=== PATIENT | female | born 1990 | race Caucasian/White ===

== ENCOUNTER 2017-11-05 08:29 | Emergency (ER) | payer SELFPAY | END 2017-11-05 08:55 | disposition left against medical advice (07) | LOC: MW.ED 08:29 | DX: Z53.21 Procedure and treatment not carried out due to patient leaving prior to being seen by health care provider (principal) ==

== ENCOUNTER 2019-02-01 21:48 | Emergency (ER) | payer MEDICAID, OTHER ==
[2019-02-01] MEDS ORDERED: Benzocaine 20% Topical Spray UD MUCMEM ONE (22:20)
[2019-02-01] MEDS ORDERED: Lidocaine 2% Viscous Solution 15 ML Cup PO ONE (22:20)
--- NOTE | 2019-02-01 22:23 | EDM.PDOC ---
ED HPI GENERAL MEDICAL PROBLEM - General Chief Complaint: General Stated Complaint: PT HAS TOOTHACHE Time Seen by Provider: 02/01/19 22:15 - History of Present Illness INITIAL COMMENTS - FREE TEXT/NARRATIVE: HISTORY AND PHYSICAL: History of present illness: The patient is a 20-year-old female with a known history of dental problems who presents with pain at the upper right back molar area that started today. She has had on-and-off pain throughout her mouth and she has multiple areas of dental issues that she is aware of and is trying to get on top of by making the money that she needs to pay to have these teeth pulled. She has had no facial swelling no fevers no chills no sore throat and no other systemic complaints. She is here because she does not want to get infected and she would like something for pain management. Review of systems: As per history of present illness and below otherwise all systems reviewed and negative. Past medical history: As per history of present illness and as reviewed below otherwise noncontributory. Surgical history: As per history of present illness and as reviewed below otherwise noncontributory. Social history: No reported history of drug or alcohol abuse. Family history: As per history of present illness and as reviewed below otherwise noncontributory. Physical exam: General: Well-developed well-nourished female is nontoxic and there is no visible evidence of facial swelling. Vital signs are noted by me HEENT: Atraumatic, normocephalic, pupils reactive, negative for conjunctival pallor or scleral icterus, mucous membranes moist, throat clear, neck supple, nontender, trachea midline. There is no cervical adenopathy or nuchal rigidity, there are multiple areas of dental disease and dental decay seen in her mouth and the area that is most bothering her is the right upper molar area where there are cavities and gum swelling but no fluctuance. Lungs: Clear to auscultation, breath sounds equal bilaterally, chest nontender. Heart: S1S2, regular rate and rhythm no overt murmurs Abdomen: Deferred Pelvis: Deferred Genitourinary: Deferred. Rectal: Deferred. Extremities: Atraumatic, full range of motion. Neurovascular unremarkable. Neuro: Awake, alert, oriented. Cranial nerves II through XII unremarkable. Cerebellum unremarkable. Motor and sensory unremarkable throughout. Exam nonfocal. Diagnostics: [] Therapeutics: Dental balls Impression: Pain and dental caries Definitive disposition and diagnosis as appropriate pending reevaluation and review of above. Right Lower Tooth/Teeth Pain Score (Numeric/FACES): 1 - Related Data Allergies Allergy/AdvReac Type Severity Reaction Status Date / Time codeine Allergy Vomiting Verified 02/01/19 22:11 Home Meds: Home Meds . [No Known Home Meds] 11/05/17 [History] Past Medical History - Past Health History Medical/Surgical History: Denies Medical/Surgical History Psychiatric History: Reports: Anxiety, Depression - Infectious Disease History Infectious Disease History: Reports: Chicken Pox - Past Surgical History HEENT Surgical History: Reports: Oral Surgery Social & Family History - Tobacco Use Smoking Status *Q: Current Every Day Smoker Years of Tobacco use: 16 Packs/Tins Daily: 0.5 - Caffeine Use Caffeine Use: Reports: Coffee - Recreational Drug Use Recreational Drug Use: Yes Drug Use in Last 12 Months: No Recreational Drug Type: Reports: Marijuana/Hashish Recreational Drug Use Frequency: Not Used In Over 6 Months ED ROS GENERAL - Review of Systems Review Of Systems: ROS reveals no pertinent complaints other than HPI. ED EXAM, GENERAL - Physical Exam Exam: See Below (see dictation) Course - Vital Signs Last Recorded V/S: Last Vital Signs Temp 36.6 C 02/01/19 22:08 Pulse 95 02/01/19 22:08 Resp BP 124/81 02/01/19 22:08 Pulse Ox 99 02/01/19 22:08 - Orders/Labs/Meds Orders: Active Orders 24 hr Category Date Time Status Benzocaine [Hurricaine One 20%] Med 02/01/19 22:20 Once 2 each MUCMEM ONETIME ONE Lidocaine 2% [Xylocaine 2% Viscous] Med 02/01/19 22:20 Once 15 ml PO ONETIME ONE Departure - Departure Time of Disposition: 22:22 Disposition: Home, Self-Care 01 Condition: Good Clinical Impression: Pain due to dental caries - Discharge Information Referrals: PCP,None [Primary Care Provider] - Additional Instructions: The following information is given to patients seen in the emergency department who are being discharged to home. This information is to outline your options for follow-up care. We provide all patients seen in our emergency department with a follow-up referral. The need for follow-up, as well as the timing and circumstances, are variable depending upon the specifics of your emergency department visit. If you don't have a primary care physician on staff, we will provide you with a referral. We always advise you to contact your personal physician following an emergency department visit to inform them of the circumstance of the visit and for follow-up with them and/or the need for any referrals to a consulting specialist. The emergency department will also refer you to a specialist when appropriate. This referral assures that you have the opportunity for followup care with a specialist. All of these measure are taken in an effort to provide you with optimal care, which includes your followup. Under all circumstances we always encourage you to contact your private physician who remains a resource for coordinating your care. When calling for followup care, please make the office aware that this follow-up is from your recent emergency room visit. If for any reason you are refused follow-up, please contact the [facility] emergency department at and ask to speak to the emergency department charge nurse. [facility] [place] [address] Please contact one of our local dentist for evaluation and definitive care. Place ice on face for any swelling and rinse her mouth after each meal. Please use dental balls as you have been given for pain management as well as over-the- counter Tylenol and ibuprofen. Take antibiotics you have been given from [facility], amoxicillin, to control any infection and return to ER as needed and as discussed - My Orders Last 24 Hours: My Active Orders 02/01/19 22:20 Benzocaine [Hurricaine One 20%] 2 each MUCMEM ONETIME ONE Lidocaine 2% [Xylocaine 2% Viscous] 15 ml PO ONETIME ONE - Assessment/Plan Last 24 Hours: My Active Orders 02/01/19 22:20 Benzocaine [Hurricaine One 20%] 2 each MUCMEM ONETIME ONE Lidocaine 2% [Xylocaine 2% Viscous] 15 ml PO ONETIME ONE
== END 2019-02-01 22:50 | disposition home or self-care (01) ==
LOC: MW.ED 21:48
DX: K02.9 Dental caries, unspecified (principal); Z88.5 Allergy status to narcotic agent; F17.210 Nicotine dependence, cigarettes, uncomplicated
CPT/HCPCS: 99282; A9270; 99283

== ENCOUNTER 2019-10-23 20:20 | Emergency (ER) | payer SELFPAY ==
[2019-10-23] MEDS ORDERED: Benzocaine 20% Topical Spray UD MUCMEM ONE (21:07)
[2019-10-23] MEDS ORDERED: Lidocaine 2% Viscous Solution 15 ML Cup PO ONE (21:07)
--- NOTE | 2019-10-23 21:12 | EDM.PDOC ---
ED HPI GENERAL MEDICAL PROBLEM - General Chief Complaint: ENT Problem Stated Complaint: ABCESS TOOTH Time Seen by Provider: 10/23/19 21:04 Source of Information: Reports: Patient History Limitations: Reports: No Limitations - History of Present Illness INITIAL COMMENTS - FREE TEXT/NARRATIVE: HISTORY AND PHYSICAL: History of present illness: Patient is a 29-year-old female who presents to the ED today with concern of dental abscess that she noticed this morning. Patient states she has had multiple abscess in the past and is working with a dentist to get her teeth removed. Patient states when she woke up she noticed swelling around the gumline of her tooth and has had pain around the tooth. Patient states she has been able to eat if she chews on the other side of her mouth. Patient denies any other symptoms or concerns. Patient denies fever, chills, chest pain, shortness of breath, or cough. Denies headache, neck stiff ness, change in vision, syncope, or near syncope. Denies nausea, vomiting, abdominal pain, diarrhea, constipation, or dysuria. Has not noted any blood in urine or stool. Patient has been eating and drinking appropriately. Review of systems: As per history of present illness and below otherwise all systems reviewed and negative. Past medical history: As per history of present illness and as reviewed below otherwise noncontributory. Surgical history: As per history of present illness and as reviewed below otherwise noncontributory. Social history: See social history for further information Family history: As per history of present illness and as reviewed below otherwise noncontributory. Physical exam: General: Patient is alert, oriented, and in no acute distress. Patient sitting comfortably on exam table. HEENT: Atraumatic, normocephalic, pupils equal and reactive bilaterally, negative for conjunctival pallor or scleral icterus, mucous membranes moist, TMs normal bilaterally, throat clear, neck supple, nontender, trachea midline. No drooling or trismus noted. No meningeal signs. No hot potato voice noted. Lungs: Clear to auscultation, breath sounds equal bilaterally, chest nontender. Generalized poor dentition. Tooth #2 is severely eroded with surrounding edema of the gumline. Heart: S1S2, regular rate and rhythm without overt murmur Abdomen: Soft, nondistended, nontender. Negative for masses or hepatosplenomegaly. Negative for costovertebral tenderness. Pelvis: Stable nontender. Genitourinary: Deferred. Rectal: Deferred. Skin: Intact, warm, dry. No lesions or rashes noted. Extremities: Atraumatic, negative for cords or calf pain. Neurovascular unremarkable. Neuro: Awake, alert, oriented. Cranial nerves II through XII unremarkable. Cerebellum unremarkable. Motor and sensory unremarkable throughout. Exam nonfocal. Notes: Discussed importance for follow-up with a dentist. Voices understanding and is agreeable to plan of care. Denies any further questions or concerns at this time. Diagnostics: None Therapeutics: Dental balls Prescription: Augmentin Impression: Dental abscess Plan: 1. Please take medication as prescribed. 2. Tylenol and/or ibuprofen as directed and as needed for pain management. 3. "Tooth Balls" have been given to you; apply along the gumline every 2-3 hours as needed. Do not swallow these; external use only. 4. Follow-up with a dentist for definitive care. Return to the ED as needed and as discussed. Definitive disposition and diagnosis as appropriate pending reevaluation and review of above. Treatments IT DATA ARCHITECT: Reports: NSAIDS tooth Pain Score (Numeric/FACES): 9 - Related Data Allergies Allergy/AdvReac Type Severity Reaction Status Date / Time codeine Allergy Vomiting Verified 10/23/19 20:45 Home Meds: Home Meds Amoxicillin/Potassium Clav [Augmentin 875-125 Tablet] 1 each PO BID 7 Days #14 tablet 10/23/19 [Rx] Past Medical History - Past Health History Medical/Surgical History: Denies Medical/Surgical History Social & Family History - Tobacco Use Smoking Status *Q: Current Every Day Smoker Years of Tobacco use: 17 Packs/Tins Daily: 1 - Recreational Drug Use Recreational Drug Use: No ED ROS GENERAL - Review of Systems Review Of Systems: Comprehensive ROS is negative, except as noted in HPI. ED EXAM, GENERAL - Physical Exam Exam: See Below (see dictation) Course - Vital Signs Last Recorded V/S: Last Vital Signs Temp 97 F 10/23/19 20:42 Pulse 87 10/23/19 20:42 Resp 18 10/23/19 20:42 BP 114/75 10/23/19 20:42 Pulse Ox 99 10/23/19 20:42 - Orders/Labs/Meds Meds: Medications Discontinued Medications Generic Name Dose Route Start Last Admin Trade Name Yessica PRN Reason Stop Dose Admin Benzocaine 2 each 10/23/19 21:07 Hurricaine One 20% MUCMEM 10/23/19 21:08 ONETIME ONE Lidocaine HCl 15 ml 10/23/19 21:07 Xylocaine 2% Viscous PO 10/23/19 21:08 ONETIME ONE Departure - Departure Time of Disposition: 21:09 Disposition: Home, Self-Care 01 Clinical Impression: Dental abscess - Discharge Information Prescriptions: Amoxicillin/Potassium Clav [Augmentin 875-125 Tablet] 1 each PO BID 7 Days #14 tablet Referrals: PCP,None [Primary Care Provider] - Additional Instructions: The following information is given to patients seen in the emergency department who are being discharged to home. This information is to outline your options for follow-up care. We provide all patients seen in our emergency department with a follow-up referral. The need for follow-up, as well as the timing and circumstances, are variable depending upon the specifics of your emergency department visit. If you don't have a primary care physician on staff, we will provide you with a referral. We always advise you to contact your personal physician following an emergency department visit to inform them of the circumstance of the visit and for follow-up with them and/or the need for any referrals to a consulting specialist. The emergency department will also refer you to a specialist when appropriate. This referral assures that you have the opportunity for follow-up care with a specialist. All of these measure are taken in an effort to provide you with optimal care, which includes your follow-up. Under all circumstances we always encourage you to contact your private physician who remains a resource for coordinating your care. When calling for follow-up care, please make the office aware that this follow-up is from your recent emergency room visit. If for any reason you are refused follow-up, please contact the [facility] Emergency Department at and asked to speak to the emergency department charge nurse. [facility] [address] [place] [id number] [address] 1. Please take medication as prescribed. 2. Tylenol and/or ibuprofen as directed and as needed for pain management. 3. "Tooth Balls" have been given to you; apply along the gumline every 2-3 hours as needed. Do not swallow these; external use only. 4. Follow-up with a dentist for definitive care. Return to the ED as needed and as discussed. Sepsis Event Note - Evaluation Sepsis Screening Result: No Definite Risk - Focused Exam Vital Signs: Vital Signs Temp Pulse Resp BP Pulse Ox 10/23/19 20:42 97 F 87 18 114/75 99 Date Exam was Performed: 10/23/19 Time Exam was Performed: 21:08
== END 2019-10-23 21:37 | disposition home or self-care (01) ==
LOC: MW.ED 20:20 → MERGE 20:20 → MW.ED 21:37
DX: K04.7 Periapical abscess without sinus (principal); F17.210 Nicotine dependence, cigarettes, uncomplicated; Z88.5 Allergy status to narcotic agent
CPT/HCPCS: 99282; A9270

== ENCOUNTER 2020-02-24 09:56 | Emergency (ER) | payer SELFPAY ==
--- NOTE | 2020-02-24 10:08 | EDM.PDOC ---
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 She states she recently bought new tampons (store was out of her "usual kind") and when she inserted the tampon is was very painful. She removed the tampon immediately; but continued to have pelvic pain x 1 hour afterwards. She is on day #3 of her menses; "normal flow" and using a regular tampon. She states she did have a well women's exam about 1 year ago; but was told she needed to have her exam redone, because the samples weren't adequate. Denies any vaginal discharge or odor. Does have concerns of STD as she is sexually active. She denies any fever, chills, chest pain, SOB, cough or near/syncope. Denies any abdominal pain, n/v/d, dysuria or constipation. Review of systems: As per history of present illness and below otherwise all systems reviewed and negative. Past medical history: As per history of present illness and as reviewed below otherwise noncontributory. Surgical history: As per history of present illness and as reviewed below otherwise noncontributory. Social history: See social history for further information Family history: As per history of present illness and as reviewed below otherwise noncontributory. Physical exam: General: Well developed and well nourished 29 year old female. Alert and orientated. Nontoxic appearing and in no acute distress. VSS. HEENT: Atraumatic, normocephalic, pupils equal and reactive bilaterally, negative for conjunctival pallor or scleral icterus, mucous membranes moist, trachea midline. No drooling or trismus noted. No meningeal signs. No hot potato voice noted. Lungs: Clear to auscultation, breath sounds equal bilaterally, chest nontender. Heart: S1S2, regular rate and rhythm without overt murmur Abdomen: Soft, nondistended, nontender. Negative for masses or hepatosplenomegaly. Negative for costovertebral tenderness. Pelvis: Stable nontender. No unilateral tenderness or masses noted. Genitourinary: This was done with consent and a milk receiver tank truck at the bedside. Normal appearing external genitalia. Minimal blood noted in the vaginal vault. Cervical os is closed. No pain with cervical motion. Swabs obtained and sent to lab. Skin: Intact, warm, dry. No lesions or rashes noted. Extremities: Atraumatic, moves all extremities per self without difficulty or deficits, negative for cords or calf pain. Neurovascular unremarkable. Neuro: Awake, alert, oriented. Cranial nerves II through XII unremarkable. Cerebellum unremarkable. Motor and sensory unremarkable throughout. Exam nonfocal. Notes: Pelvic exam shown no abnormalities; she would like STD testing. Counseling was done. Urine shows trichomonas, +BV. Will treat with Flagyl. Supportive care measures were reviewed and discussed. Voices understanding and is agreeable to plan of care. Denies any further questions or concerns at this time. Diagnostics: UA, HCGU, Gio/Chlam, Tric/BV/Yeast Therapeutics: None Prescription: Flagyl Impression: Pelvic Pain Bacterial Vaginosis Plan: 1. Please abstain from sexual intercourse until all the lab results have returned. Always use protection to minimized risk of STD exposure 2. Take the medications as directed. The gonorrhea and chlamydia tests are send out labs, therefore will not be available for 2-3 business days. 3. Please follow-up with your primary care provider in the next 1-2 days. [facility] does offer free STD testing, please follow-up with them for further STD testing needs. Return to the ED as needed and as discussed. Definitive disposition and diagnosis as appropriate pending reevaluation and review of above. Onset: Today Onset Date: 02/24/20 Onset Time: 09:00 Duration: Hour(s): Location: Reports: Pelvis - Related Data Allergies Allergy/AdvReac Type Severity Reaction Status Date / Time codeine Allergy Vomiting Verified 02/24/20 10:13 Home Meds: Home Meds . [No Known Home Meds] 11/05/17 [History] Past Medical History - Past Health History Medical/Surgical History: Denies Medical/Surgical History Psychiatric History: Reports: Anxiety, Depression - Infectious Disease History Infectious Disease History: Reports: Chicken Pox - Past Surgical History HEENT Surgical History: Reports: Oral Surgery Social & Family History - Caffeine Use Caffeine Use: Reports: Coffee ED ROS GENERAL - Review of Systems Review Of Systems: Comprehensive ROS is negative, except as noted in HPI. ED EXAM, RENAL/ - Physical Exam Exam: See Below (See dictation) Course - Vital Signs Last Recorded V/S: Last Vital Signs Temp 97.7 F 02/24/20 10:09 Pulse 76 02/24/20 10:09 Resp 20 02/24/20 10:09 BP 130/88 02/24/20 10:09 Pulse Ox 100 02/24/20 10:09 - Orders/Labs/Meds Orders: Active Orders 24 hr Category Date Time Status CHLAMYDIA AND GONORRHEA BY TMA Stat Lab 02/24/20 10:15 Received Labs: Laboratory Tests 02/24/20 02/24/20 02/24/20 Range/Units 10:15 10:15 10:15 Urine Color PINK Urine Appearance SLT CLOUDY Urine pH 6.0 (5.0-8.0) Ur Specific [place] <= 1.005 (1.001-1.035) Urine Protein NEGATIVE (NEGATIVE) mg/dL Urine Glucose (UA) NEGATIVE (NEGATIVE) mg/dL Urine Ketones NEGATIVE (NEGATIVE) mg/dL Urine Occult Blood LARGE H (NEGATIVE) Urine Nitrite NEGATIVE (NEGATIVE) Urine Bilirubin NEGATIVE (NEGATIVE) Urine Urobilinogen 0.2 (<2.0) EU/dL Ur Leukocyte Esterase NEGATIVE (NEGATIVE) Urine RBC 10-15 (0-2/HPF) Urine WBC 0-1 (0-5/HPF) Ur Epithelial Cells FEW (NONE-FEW) Urine Bacteria FEW (NEGATIVE) Urine Mucus LIGHT (NONE-MOD) Urine Trichomonas PRESENT (NEGATIVE) Urine HCG, Qual NEGATIVE (NEGATIVE) Renetta species DNA NEGATIVE (NEGATIVE) Gardnerella DNA Probe POSITIVE H (NEGATIVE) Trichomonas DNA Probe POSITIVE H (NEGATIVE) Departure - Departure Time of Disposition: 11:25 Disposition: Home, Self-Care 01 Clinical Impression: Pelvic pain, Bacterial vaginosis - Discharge Information Instructions: Bacterial Vaginosis, [id number] Referrals: PCP,None [Primary Care Provider] - Forms: ED Department Discharge Additional Instructions: The following information is given to patients seen in the emergency department who are being discharged to home. This information is to outline your options for follow-up care. We provide all patients seen in our emergency department with a follow-up referral. The need for follow-up, as well as the timing and circumstances, are variable depending upon the specifics of your emergency department visit. If you don't have a primary care physician on staff, we will provide you with a referral. We always advise you to contact your personal physician following an emergency department visit to inform them of the circumstance of the visit and for follow-up with them and/or the need for any referrals to a consulting specialist. The emergency department will also refer you to a specialist when appropriate. This referral assures that you have the opportunity for follow-up care with a specialist. All of these measure are taken in an effort to provide you with optimal care, which includes your follow-up. 1. Please abstain from sexual intercourse until all the lab results have returned. Always use protection to minimized risk of STD exposure 2. Take the medications as directed. The gonorrhea and chlamydia tests are send out labs, therefore will not be available for 2-3 business days. 3. Please follow-up with your primary care provider in the next 1-2 days. [facility] does offer free STD testing, please follow-up with them for further STD testing needs. Return to the ED as needed and as discussed. Sepsis Event Note - Focused Exam Vital Signs: Vital Signs Temp Pulse Resp BP Pulse Ox 02/24/20 10:09 97.7 F 76 20 130/88 100 Date Exam was Performed: 02/24/20 Time Exam was Performed: 11:22 - My Orders Last 24 Hours: My Active Orders 02/24/20 10:15 CHLAMYDIA AND GONORRHEA BY TMA Stat - Assessment/Plan Last 24 Hours: My Active Orders 02/24/20 10:15 CHLAMYDIA AND GONORRHEA BY TMA Stat
[2020-02-25 11:07] LABS: C.TRACHOMATIS BY TMA Negative (Negative); N.GONORRHOEAE BY TMA Negative (Negative)
== END 2020-02-24 11:40 | disposition home or self-care (01) ==
LOC: MW.ED 09:56
DX: N76.0 Acute vaginitis (principal); Z88.5 Allergy status to narcotic agent
CPT/HCPCS: 81001; 81025; 87480; 87491; 87510; 87591; 87660; 99283; 99284

== ENCOUNTER 2021-06-12 18:27 | Emergency (ER) | payer SELFPAY ==
--- NOTE | 2021-06-12 19:27 | EDM.PDOC ---
ED HPI GENERAL MEDICAL PROBLEM - General Chief Complaint: Gastrointestinal Problem Stated Complaint: ACID REFLUX Time Seen by Provider: 06/12/21 19:10 - History of Present Illness INITIAL COMMENTS - FREE TEXT/NARRATIVE: History of present illness: For 11 years since she got the original symptoms after this patient has had pain in her esophagus and her upper abdomen almost daily. It is a burning pain that starts in the area of the stomach and radiates up. Occasionally she regurgitates sour liquid. Occasionally she feels like it is worse at night or worse after she eats before she retires. It is never exertional. She does smoke. She has tried Tums and [id number] omeprazole and ranitidine. Neither seem to help. Patient is worse for a year but she is under a lot of stress for year involved in a custody nguyen. [] Review of systems: As per history of present illness and below otherwise all systems reviewed and negative. Past medical history: As per history of present illness and as reviewed below otherwise noncontributory. Surgical history: As per history of present illness and as reviewed below otherwise noncontributory. Social history: No reported history of drug or alcohol abuse. Family history: As per history of present illness and as reviewed below otherwise noncontributory. Physical exam: Constitutional - well developed, well-nourished and in no acute distress HEENT - normocephalic, no evidence of trauma - external nose and mouth normal - no mass in neck and no JVD - mucosae moist EYES - full EOM, PERRL, no icterus - no evidence of inflammation, injection, or drainage Respiratory - no respiratory distress, equal bilateral expansion, lungs clear to auscultation and no abnormal lung sounds Cardiovascular - Regular Rhythm with S1 and S2 appreciated and no murmur, gallop or rub. GI - abdomen soft without distension or organomegaly - normal bowel sounds - no guard or rebound Musculoskeletal no gross deformity of long bones or joints - no tenderness, swelling or edema Neurologic - Alert and oriented times four - CN II-XII grossly intact - motor sensory and coordination symmetrically normal Psychiatric - appropriate mood and affect with normal thought content Hematologic - No petechiae or purpura - mucosa appropriate color and sclera not pale - normal nail bed color and refill Integument - no rash or evidence of trauma - normal turgor Diagnostics: [] Therapeutics: [] Impression: [] Plan: [] Definitive disposition and diagnosis as appropriate pending reevaluation and review of above. - Related Data Allergies Allergy/AdvReac Type Severity Reaction Status Date / Time codeine Allergy Vomiting Verified 06/12/21 18:58 Home Meds: Home Meds . [No Known Home Meds] 11/05/17 [History] Past Medical History - Past Health History Medical/Surgical History: Denies Medical/Surgical History Psychiatric History: Reports: Anxiety, Depression Hematologic History: Reports: None - Infectious Disease History Infectious Disease History: Reports: Chicken Pox - Past Surgical History HEENT Surgical History: Reports: Oral Surgery Social & Family History - Family History Family Medical History: No Pertinent Family History - Caffeine Use Caffeine Use: Reports: Coffee - Recreational Drug Use Recreational Drug Use: No ED ROS GENERAL - Review of Systems Review Of Systems: Comprehensive ROS is negative, except as noted in HPI. ED EXAM, GENERAL - Physical Exam Exam: See Below Free Text/Narrative:: My physical exam as in the HPI Course - Vital Signs Last Recorded V/S: Last Vital Signs Temp 36.1 C 06/12/21 18:56 Pulse 99 06/12/21 18:56 Resp 17 06/12/21 18:56 BP 133/87 06/12/21 18:56 Pulse Ox 100 06/12/21 18:56 Departure - Departure Time of Disposition: 19:22 Disposition: Home, Self-Care 01 Condition: Good Clinical Impression: GERD with esophagitis - Discharge Information Instructions: Gastroesophageal Reflux Disease, Adult, [id number] Referrals: PCP,None [Primary Care Provider] - Additional Instructions: OMEPRAZOLE 40 MG ORALLY TWICE A DAY ranitidine 150 mg orally twice a day Make appointment with surgery for upper GI endoscopy Elevate the head of your bed (easiest if put feet at head in grooves on blocks rather than fall off stacked pillows) Don't eat before bedtime (like 4 hours before) Maalox, TUMS, etc once symptoms worsen but only as needed [facility] - [facility] [address] [place] [address], [address] [place] [address] [facility] - [facility] [address] [place] [address] [id number] [facility] [address] [place] [address] The following information is given to patients seen in the emergency department who are being discharged to home. This information is to outline your options for follow-up care. We provide all patients seen in our emergency department with a follow-up referral. The need for follow-up, as well as the timing and circumstances, are variable depending upon the specifics of your emergency department visit. If you don't have a primary care physician on staff, we will provide you with a referral. We always advise you to contact your personal physician following an emergency department visit to inform them of the circumstance of the visit and for follow-up with them and/or the need for any referrals to a consulting specialist. The emergency department will also refer you to a specialist when appropriate. This referral assures that you have the opportunity for follow-up care with a specialist. All of these measure are taken in an effort to provide you with optimal care, which includes your follow-up. Under all circumstances we always encourage you to contact your private physician who remains a resource for coordinating your care. When calling for follow-up care, please make the office aware that this follow-up is from your recent emergency room visit. If for any reason you are refused follow-up, please contact the [facility] Emergency Department at and asked to speak to the emergency department charge nurse. Sepsis Event Note (ED) - Evaluation Sepsis Screening Result: No Definite Risk - Focused Exam Vital Signs: Vital Signs Temp Pulse Resp BP Pulse Ox 06/12/21 18:56 36.1 C 99 17 133/87 100
== END 2021-06-12 19:42 | disposition home or self-care (01) ==
LOC: MW.ED 18:27
DX: K21.00 Gastro-esophageal reflux disease with esophagitis, without bleeding (principal); Z88.5 Allergy status to narcotic agent
CPT/HCPCS: 99283

== ENCOUNTER 2022-12-30 21:28 | Emergency (ER) | payer SELFPAY ==
[2022-12-30] MEDS ORDERED: Penicillin V Potassium Soln 250 MG/5 ML 100 ML Bottle PO ONE (23:32)
[2022-12-30] MEDS ORDERED: Ibuprofen 800 MG Tab PO ONE (23:32)
[2022-12-30] MEDS ORDERED: Penicillin V Potassium 500 MG Tab PO ONE (23:37)
== END 2022-12-30 23:51 | disposition home or self-care (01) ==
LOC: MW.ED 21:28
DX: K08.89 Other specified disorders of teeth and supporting structures (principal); Z88.5 Allergy status to narcotic agent; Z72.0 Tobacco use
CPT/HCPCS: 99282; A9270; 99283

== ENCOUNTER 2024-02-12 16:05 | Emergency (ER) | payer SELFPAY ==
[2024-02-12 20:01] LABS: BASOPHILS ABSOLUTE AUTO 0.05 K/uL (0.00-0.20); BASOPHILS PERCENT AUTO 0.6 % (0.0-1.0); EOSINOPHILS ABSOLUTE AUTO 0.18 K/uL (0.00-0.45); EOSINOPHILS PERCENT AUTO 2.2 % (0.0-6.0); HEMATOCRIT 38.6 % (37.0-47.0); HEMOGLOBIN 12.8 g/dL (12.0-16.0); IMMATURE GRAN ABSOLUTE AUTO 0.02 K/uL (0.00-0.05); IMMATURE GRAN PERCENT AUTO 0.2 % (0.0-0.4); LYMPHOCYTES ABSOLUTE AUTO 3.15 K/uL (1.00-4.80); LYMPHOCYTES PERCENT AUTO 38.2 % (24.0-44.0); MEAN CORPUSCULAR HEMOGLOBIN 27.5 pg (28.0-32.0); MEAN CORPUSCULAR HGB CONC 33.2 g/dL (32.0-36.0); MEAN PLATELET VOLUME 11.9 fL (9.4-12.3); MONOCYTES ABSOLUTE AUTO 0.69 K/uL (0.00-0.80); MONOCYTES PERCENT AUTO 8.4 % (0.0-8.0); NEUTROPHILS ABSOLUTE AUTO 4.15 K/uL (1.80-7.70); NEUTROPHILS PERCENT AUTO 50.4 % (41.0-71.0); PLATELET COUNT,PLT 227 K/uL (150-400); RED BLOOD CELL COUNT 4.65 M/uL (4.10-5.30); WHITE BLOOD CELL COUNT,WBC 8.24 K/uL (3.9-11.3)
[2024-02-12 20:16] LABS: HEMOGLOBIN A1C 5.8 %
[2024-02-12 20:22] LABS: PERCENT FE SATURATION 10.54 % (20-55)
[2024-02-12 20:47] LABS: A/G RATIO 0.9 (0.9-1.6); ALANINE AMINOTRANSFERASE,ALT 30 IU/L (14-63); ALBUMIN 3.6 g/dL (3.4-5.0); ALKALINE PHOSPHATASE 54 U/L (46-116); ASPARTATE AMNIOTRANSFERASE,AST 17 IU/L (15-37); BILIRUBIN TOTAL 0.3 mg/dL (0.2-1.0); BLOOD UREA NITROGEN,BUN 11 mg/dL (7.0-18.0); CALCIUM 9.6 mg/dL (8.5-10.1); CARBON DIOXIDE,CO2 23.4 mmol/L (21.0-32.0); CHLORIDE,CL 105 mmol/L (98-107); CREATININE 0.7 mg/dL (0.6-1.0); EST CRCL DRUG DOSING (CG) 98.71 mL/min; GLUCOSE RANDOM 79 mg/dL (74-106); MAGNESIUM 2.1 mg/dL (1.8-2.4); PROTEIN TOTAL,TP 7.6 g/dL (6.4-8.2); SODIUM,NA 138 mmol/L (136-145)
[2024-02-12 20:49] LABS: ESTIMATED GFR 117 mL/min (>60); TSH ULTRASENSITIVE < 0.01 uIU/mL (0.36-3.74)
[2024-02-12 21:05] LABS: T4 FREE 1.57 ng/dL (0.76-1.46)
== END 2024-02-12 21:47 | disposition home or self-care (01) ==
LOC: MW.ED 16:05
DX: E61.1 Iron deficiency (principal); E05.90 Thyrotoxicosis, unspecified without thyrotoxic crisis or storm; Z88.5 Allergy status to narcotic agent; Z86.16 Personal history of COVID-19; Z79.899 Other long term (current) drug therapy
CPT/HCPCS: 36415; 70450; 70450-26; 80053; 82306; 82607; 82746; 83036; 83550; 83735; 84425; 84439; 84443; 84484; 84703; 85025; 93005; 99285

== ENCOUNTER 2024-09-03 19:13 | Emergency (ER) | payer BC | END 2024-09-03 20:43 | disposition home or self-care (01) | LOC: MW.ED 19:13 | DX: S80.02XA Contusion of left knee, initial encounter (principal); Z79.899 Other long term (current) drug therapy; Z88.5 Allergy status to narcotic agent; Z75.8 Other problems related to medical facilities and other health care; W22.03XA Walked into furniture, initial encounter | CPT/HCPCS: 73562-26-LT; 73562-LT; 99283 ==